=== PATIENT | female | born 1945 | race Caucasian/White ===

== ENCOUNTER → 2016-12-18 | Day surgery (SDC) | payer MEDICARE ==
[~2016-12-18] MED LIST: LEVOXYL50 MC1 PO; PRINIVIL10 MG PO; VITAMIN D1000 UNIT PO
--- NOTE | ~2016-12-18 | OR ---
Unit #: [id number] #: [id number] Patient: EVETTE NICK [id number] [address] [address] [id number] MR#: [id number] NAME: EVETTE NICK ROOM: Date of Procedure: 12/18/2016 Admission Date: 12/18/2016 Surgeon: Nicolas Alarcon M.D. : 1945 Attending Physician: Nicolas Alarcon M.D. Primary Care Physician: [facility], [facility]. OPERATIVE REPORT PROCEDURES PERFORMED Colonoscopy with biopsy and colonoscopy with snare polypectomy. INDICATIONS FOR PROCEDURE The patient with chronic diarrhea, undergoing evaluation with colonoscopy. MEDICATIONS Monitored anesthesia. POSTOPERATIVE FINDINGS 1. No colitis was seen. Random biopsies taken. 2. Multiple polyps, one in ascending colon, two in transverse colon, one in descending colon. All 5 to 6 mm in size, snared, and sent for histopathology. 3. Internal hemorrhoids. PLAN Follow up on pathology report. Repeat colonoscopy in 3 years. DESCRIPTION OF PROCEDURE The patient was explained of the procedure, risks, and benefits along with the risks and benefits of anesthesia. She was brought to the endoscopy room. Propofol anesthesia was given. Rectal exam was done, which was normal. Colonoscope was lubricated, passed up the rectum, advanced under direct vision all the way to the cecum. Cecum was identified by ileocecal valve and appendiceal orifice. Terminal ileum was visualized and normal in appearance. Several polyps were seen. They were snared and sent for histopathology. Random biopsies were taken also. I retroflexed in the rectum, small hemorrhoids seen. Scope was gently pulled out. She tolerated it well. No major complications were seen. Dictated by... Aleksandr Lopez/marisela TD: 12/27/2016 23:25 JOB #: [id number] CC: Smiley Huggins M.D. Unit #: [id number] #: [id number] Patient: EVETTE NICK OPERATIVE REPORT X Nicolas Alarcon MD PROCEDURE OPERATIVE NOTE
== END | disposition home or self-care (01) ==
LOC: COPS 07:44
DX: D12.0 Benign neoplasm of cecum (principal); D12.2 Benign neoplasm of ascending colon; D12.3 Benign neoplasm of transverse colon; D12.4 Benign neoplasm of descending colon; K52.9 Noninfective gastroenteritis and colitis, unspecified; K64.8 Other hemorrhoids; Z88.2 Allergy status to sulfonamides; Z79.899 Other long term (current) drug therapy; Z90.49 Acquired absence of other specified parts of digestive tract; Z90.710 Acquired absence of both cervix and uterus; Z98.51 Tubal ligation status
CPT/HCPCS: 88305; J2250